=== PATIENT | female | born 1945 | race Hispanic/Latino ===

== ENCOUNTER 2018-04-16 12:06 | Observation (INO) | payer MEDICARE ==
[2018-04-14 09:35] VITALS: BP_SYST 147; BP_SYST 149; BP_DIAS 47; BP_DIAS 60
[2018-04-14 10:27] LABS: BASOPHILS % (AUTO) 0.6 % (0.0-5.0); EOSINOPHILS % (AUTO) 1.9 % (0.0-8.0); HEMATOCRIT 36.7 % (36-48); LYMPHOCYTES % (AUTO) 28.8 % (21.0-51.0); MEAN CORPUSCULAR HEMOGLOBIN 29.9 pg (27.0-33.0); MEAN CORPUSCULAR HGB CONC 32.9 g/dL (32.0-36.0); MEAN CORPUSCULAR VOLUME 91.1 fL (79-99); MONOCYTES % (AUTO) 10.8 % (3.0-13.0); NEUTROPHILS % (AUTO) 57.9 % (40.0-77.0); PLATELET COUNT (AUTO) 168 K/uL (130-400); RED BLOOD CELL COUNT(AUTO) 4.03 MIL/uL (4.00-5.50); RED CELL DISTRIBUTION WIDTH 13.5 % (11.0-15.5); WHITE BLOOD COUNT (AUTO) 6.1 K/uL (4.8-10.8)
[2018-04-14 10:34] LABS: APPEARANCE,URINE Cloudy (CLEAR); BILIRUBIN,URINE Negative (NEGATIVE); COLOR,URINE Yellow (YELLOW); GLUCOSE, URINE (UA) Negative (NEGATIVE); KETONES,URINE Negative (NEGATIVE); LEUKOCYTE ESTERASE ,URINE Moderate (NEGATIVE); NITRATE,URINE Positive (NEGATIVE); OCCULT BLOOD,URINE Trace (NEGATIVE); PROTEIN,URINE Negative (NEGATIVE); UROBILINOGEN,URINE 0.2 mg/dL (0.2-1.0)
[2018-04-14 10:38] LABS: BACTERIA,URINE Many /HPF (None Seen); RBC,URINE 0-1 /HPF (0-1); SQUAMOUS EPITHELIAL CELL,UR Few /HPF (0-2)
[2018-04-14 10:40] LABS: INR 0.99 (0.85-1.15); PARTIAL THROMBOPLASTIN TIME 27.5 SEC (26.3-35.5); PROTHROMBIN TIME 10.4 SEC (9.6-11.6)
[2018-04-14 10:42] LABS: CREATININE 1.4 mg/dL (0.5-1.5)
[2018-04-16] VITALS (9 sets, daily range): BP systolic 133–161; BP diastolic 54–98
[~2018-04-16] VITALS: Ht 167.6 cm; Wt 115.3 kg
[~2018-04-16 12:06] MED LIST: AEC81 PO; INSU100I24 SQ; METF500S7 PO; OMEP20TA25 PO; PIOG15TA66 PO; SIMV20TA6 PO
[2018-04-16] MEDS ORDERED: SODIUM CHLORIDE 0.9% 1000ML 1,000 ML IV ONE (14:40)
[2018-04-16] MEDS ORDERED: LIDOCAINE HCL-MPF 2% 5ML VIAL ONE (16:15)
[2018-04-16] MEDS ORDERED: HEPARIN SODIUM 1000UNIT/ML 10ML VIAL ONE (16:15)
[2018-04-16] MEDS ORDERED: IOHEXOL-350 50ML VIAL IV ONE (16:15)
[2018-04-16] MEDS ORDERED: IOHEXOL 350 MG/ML 100ML INFUS..BTL IV ONE (16:15)
[2018-04-16] MEDS ORDERED: NITROGLYCERIN 5 MG/ML 10 ML VIAL IV ONE (16:15)
[2018-04-16] MEDS ORDERED: SODIUM BICARB 50MEQ 50ML VIAL ONE (16:20)
[2018-04-16] MEDS ORDERED: MIDAZOLAM HCL 1 MG/ML 2ML VIAL ONE (16:29)
[2018-04-16] MEDS ORDERED: MEPERIDINE-PF 25 MG/ML SYG ONE (16:29)
[2018-04-16] MEDS ORDERED: CLOPIDOGREL BISULFATE 300 MG TAB ONE (17:05)
[2018-04-16] MEDS ORDERED: ASPIRIN 81MG TAB.CHEW ONE (17:12)
[2018-04-16] MEDS ORDERED: SODIUM CHLORIDE 0.9% 1000ML 1,000 ML IV SCH (17:21)
[2018-04-16] MEDS ORDERED: PANT40TA25 PO (17:29)
[2018-04-16] MEDS ORDERED: DEXTROSE 50%-WATER 50 ML DISP.SYRIN IV PRN (17:30)
[2018-04-16] MEDS ORDERED: GLUCAGON 1MG KIT 1 MG ML IM PRN (17:30)
[2018-04-16] MEDS ORDERED: ACETAMINOPHEN 325 MG TAB PO PRN (17:30)
[2018-04-16] MEDS ORDERED: ONDANSETRON HCL 4 MG/2 ML VIAL IVP PRN (17:30)
[2018-04-16] MEDS ORDERED: ACETAMINOPHEN-CODEINE 300/30MG TAB PO PRN (17:30)
[2018-04-16] MEDS ORDERED: HYDRALAZINE HCL 20 MG/ML VIAL IM PRN (17:45)
[2018-04-16] MEDS: METOPROLOL TARTRATE 25 MG TAB PO SCH (20:23)
[2018-04-16] MEDS: INSULIN HUMULIN R 100 UNIT/ML 3ML SQ SCH (21:00)
[2018-04-17 03:00] VITALS: BP 168/99
[2018-04-17 03:53] LABS: HEMATOCRIT 36.9 % (36-48); MEAN CORPUSCULAR HEMOGLOBIN 30.6 pg (27.0-33.0); MEAN CORPUSCULAR HGB CONC 33.9 g/dL (32.0-36.0); MEAN CORPUSCULAR VOLUME 90.3 fL (79-99); PLATELET COUNT (AUTO) 181 K/uL (130-400); RED BLOOD CELL COUNT(AUTO) 4.08 MIL/uL (4.00-5.50); RED CELL DISTRIBUTION WIDTH 13.7 % (11.0-15.5); WHITE BLOOD COUNT (AUTO) 8.5 K/uL (4.8-10.8)
[2018-04-17 04:26] LABS: CREATININE 1.2 mg/dL (0.5-1.5); POTASSIUM 3.9 mmol/L (3.5-5.1)
[2018-04-17] MEDS: INSULIN HUMULIN R 100 UNIT/ML 3ML SQ SCH (06:17)
[2018-04-17] MEDS ORDERED: CLOP75TA14 PO (07:30)
[2018-04-17] MEDS ORDERED: METO25TA3 PO (07:31)
[2018-04-17 07:43] VITALS: BP 133/80
[2018-04-17] MEDS ORDERED: PANTOPRAZOLE SODIUM 40 MG TABLET.DR PO SCH (09:00)
[2018-04-17] MEDS ORDERED: CLOPIDOGREL BISULFATE 75 MG TAB PO SCH (09:00)
[2018-04-17] MEDS ORDERED: SIMVASTATIN 20 MG TABLET PO SCH (09:00)
[2018-04-17] MEDS ORDERED: ASPIRIN 81 MG EC TAB PO SCH (09:00)
[2018-04-17] MEDS ORDERED: PIOGLITAZONE HCL 15 MG TAB PO SCH (09:00)
[2018-04-17] MEDS ORDERED: INSULIN DEGLUDEC 20 UNIT SQ SCH (09:00)
[2018-04-17] MEDS: METOPROLOL TARTRATE 25 MG TAB PO SCH (09:25)
[2018-04-17 11:42] VITALS: BP 145/50
== END 2018-04-17 11:27 | disposition home or self-care (01) ==
LOC: DAH 12:06 → DAHIP 12:07 → DAH 12:07 → 2AH 18:07
PROVIDERS: ADMIT Internal Medicine; ATTEND Internal Medicine
DX: I25.119 Atherosclerotic heart disease of native coronary artery with unspecified angina pectoris (principal); I25.5 Ischemic cardiomyopathy; E66.9 Obesity, unspecified; I11.0 Hypertensive heart disease with heart failure; I50.42 Chronic combined systolic (congestive) and diastolic (congestive) heart failure; E11.9 Type 2 diabetes mellitus without complications; E78.5 Hyperlipidemia, unspecified; I07.1 Rheumatic tricuspid insufficiency; I47.2 Ventricular tachycardia; I49.3 Ventricular premature depolarization; Z79.4 Long term (current) use of insulin; Z96.659 Presence of unspecified artificial knee joint; Z79.01 Long term (current) use of anticoagulants; Z82.49 Family history of ischemic heart disease and other diseases of the circulatory system
CPT/HCPCS: 36415 ×3; 71045; 80048 ×2; 80061; 81001; 82948 ×4; 83735; 85025; 85027; 85347; 85610; 85730; 93005 ×2; 93458; 96372; A4606; C1760 ×2; C1769; C1874; C1887; C1894; C9600; G0378 ×23; J0360; J1644 ×2; J1815; J2175; J2250; J3490 ×3; J7030; Q9965; Q9967 ×2; 99156; 99157

== ENCOUNTER → 2018-05-07 | Outpatient (CLI) | payer MEDICARE ==
[~2018-05-07] MED LIST changes: +CLOP75TA14 PO; +IOHEXOL-350 75 ML VIAL IV ONE; +METO25TA3 PO; -OMEP20TA25 PO; +PANT40TA25 PO
[2018-05-07 14:28] LABS: BASOPHILS % (AUTO) 0.9 % (0.0-5.0); EOSINOPHILS % (AUTO) 1.8 % (0.0-8.0); HEMATOCRIT 39.3 % (36-48); LYMPHOCYTES % (AUTO) 31.5 % (21.0-51.0); MEAN CORPUSCULAR HEMOGLOBIN 30.6 pg (27.0-33.0); MEAN CORPUSCULAR HGB CONC 33.7 g/dL (32.0-36.0); MEAN CORPUSCULAR VOLUME 90.6 fL (79-99); MONOCYTES % (AUTO) 10.9 % (3.0-13.0); NEUTROPHILS % (AUTO) 54.9 % (40.0-77.0); PLATELET COUNT (AUTO) 214 K/uL (130-400); RED BLOOD CELL COUNT(AUTO) 4.34 MIL/uL (4.00-5.50); RED CELL DISTRIBUTION WIDTH 13.5 % (11.0-15.5); WHITE BLOOD COUNT (AUTO) 6.2 K/uL (4.8-10.8)
[2018-05-07 14:36] LABS: CREATININE 1.5 mg/dL (0.5-1.5); POTASSIUM 4.3 mmol/L (3.5-5.1)
[2018-05-07 14:43] LABS: B-TYPE NATRIURETIC PEPTIDE 143 pg/mL (0-100); BILIRUBIN,TOTAL 0.7 mg/dL (0.2-1.0); MAGNESIUM 2.1 mg/dL (1.80-2.40); PHOSPHORUS 3.8 mg/dL (2.5-4.9); TOTAL PROTEIN, SERUM 7.6 g/dL (6.0-8.3); URIC ACID 6.3 mg/dL (2.6-7.2)
== END | disposition home or self-care (01) ==
LOC: RAH 13:41
PROVIDERS: ATTEND Internal Medicine Cardiovascular Disease
DX: J84.10 Pulmonary fibrosis, unspecified (principal); M47.895 Other spondylosis, thoracolumbar region; I26.09 Other pulmonary embolism with acute cor pulmonale; R94.39 Abnormal result of other cardiovascular function study; Z79.899 Other long term (current) drug therapy
CPT/HCPCS: 36415; 71275; 80053; 80061; 82550; 82977; 83615; 83735; 83880; 84100; 84550; 85025; Q9967

== ENCOUNTER 2018-06-12 06:00 | Observation (INO) | payer MEDICARE ==
[2018-06-10 13:45] VITALS: BP 113/45
[2018-06-10 13:51] LABS: CREATININE 2.2 mg/dL (0.5-1.5); POTASSIUM 4.2 mmol/L (3.5-5.1)
[2018-06-10 13:55] LABS: INR 0.94 (0.85-1.15); PARTIAL THROMBOPLASTIN TIME 26.7 SEC (26.3-35.5); PROTHROMBIN TIME 9.9 SEC (9.6-11.6)
[2018-06-10 13:58] LABS: BASOPHILS % (AUTO) 0.6 % (0.0-5.0); EOSINOPHILS % (AUTO) 1.1 % (0.0-8.0); HEMATOCRIT 35.9 % (36-48); LYMPHOCYTES % (AUTO) 28.2 % (21.0-51.0); MEAN CORPUSCULAR HEMOGLOBIN 29.9 pg (27.0-33.0); MEAN CORPUSCULAR HGB CONC 33.4 g/dL (32.0-36.0); MEAN CORPUSCULAR VOLUME 89.6 fL (79-99); MONOCYTES % (AUTO) 9.5 % (3.0-13.0); NEUTROPHILS % (AUTO) 60.6 % (40.0-77.0); PLATELET COUNT (AUTO) 225 K/uL (130-400); RED BLOOD CELL COUNT(AUTO) 4.01 MIL/uL (4.00-5.50); RED CELL DISTRIBUTION WIDTH 13.2 % (11.0-15.5); WHITE BLOOD COUNT (AUTO) 6.2 K/uL (4.8-10.8)
[~2018-06-12] VITALS: Ht 165.1 cm; Wt 111.3 kg
[2018-06-12] VITALS (10 sets, daily range): BP systolic 92–141; BP diastolic 46–81
[~2018-06-12 06:00] MED LIST changes: +FURO40TA5 PO; -IOHEXOL-350 75 ML VIAL IV ONE; +LOSA1TAB54 PO; +METF-526 PO; -METF500S7 PO; +MEXI150C2 PO; +POTA20TA12 PO; +SODIUM CHLORIDE 0.9% 100 ML IV SCH
[2018-06-12] MEDS ORDERED: MIDAZOLAM HCL 1 MG/ML 2ML VIAL ONE ×5 (07:38→11:31)
[2018-06-12] MEDS ORDERED: LIDOCAINE HCL 2% 20ML ONE (07:38)
[2018-06-12] MEDS ORDERED: HEPARIN SODIUM 1000UNIT/ML 10ML VIAL ONE (07:38)
[2018-06-12] MEDS ORDERED: MEPERIDINE-PF 25 MG/ML SYG ONE ×5 (07:38→11:32)
[2018-06-12] MEDS ORDERED: AMIODARONE HCL 50 MG/ML 3 ML VIAL ONE (12:13)
[2018-06-12] MEDS ORDERED: AMIODARONE HCL 900 MG in DEXTROSE 5%-WATER 500 ML IV SCH (12:15)
[2018-06-12] MEDS ORDERED: IOHEXOL-350 50ML VIAL IV ONE (12:28)
[2018-06-12] MEDS: METFORMIN HCL 500 MG TABLET PO SCH (17:00)
[2018-06-12] MEDS ORDERED: PNEUMOCOCCAL VACCINE POLYVALENT 0.5 ML/VIAL [PPV] IM ONE (20:00)
[2018-06-12] MEDS: METOPROLOL TARTRATE 25 MG TAB PO SCH (20:20)
[2018-06-12] MEDS: FUROSEMIDE 40 MG TABLET PO SCH (20:20)
[2018-06-12] MEDS: INSULIN HUMULIN R 100 UNIT/ML 3ML SQ SCH (20:36)
[2018-06-12] MEDS ORDERED: SIMVASTATIN 20 MG TABLET PO SCH (21:00)
[2018-06-13 03:45] VITALS: BP 109/54
[2018-06-13 03:51] VITALS: BP 125/72
[2018-06-13] MEDS ORDERED: PNEUMOCOCCAL VACCINE POLYVALENT 0.5 ML/VIAL [PPV] IM SCH (06:30)
[2018-06-13] MEDS: INSULIN HUMULIN R 100 UNIT/ML 3ML SQ SCH ×2 (06:45→11:49)
[2018-06-13] MEDS ORDERED: PANTOPRAZOLE SODIUM 40 MG TABLET.DR PO SCH (07:30)
[2018-06-13 07:43] VITALS: BP 118/62
[2018-06-13] MEDS ORDERED: LOSARTAN/HYDROCHLOROTHIAZIDE 50-12.5MG TABLET PO SCH (09:00)
[2018-06-13] MEDS ORDERED: POTASSIUM CHLORIDE 20 MEQ ERTAB PO SCH (09:00)
[2018-06-13] MEDS ORDERED: INSULIN DEGLUDEC 20 UNIT SQ SCH (09:00)
[2018-06-13] MEDS ORDERED: CLOPIDOGREL BISULFATE 75 MG TAB PO SCH (09:00)
[2018-06-13] MEDS ORDERED: PIOGLITAZONE HCL 15 MG TAB PO SCH (09:00)
[2018-06-13] MEDS ORDERED: ASPIRIN 81 MG EC TAB PO SCH (09:00)
[2018-06-13] MEDS: METFORMIN HCL 500 MG TABLET PO SCH (09:13)
[2018-06-13] MEDS: FUROSEMIDE 40 MG TABLET PO SCH (09:13)
[2018-06-13] MEDS: METOPROLOL TARTRATE 25 MG TAB PO SCH (09:14)
[2018-06-13 11:08] VITALS: BP 97/46
== END 2018-06-13 15:45 | disposition home or self-care (01) ==
LOC: DAH 06:00 → 2AH 06:01 → DAH 06:01
PROVIDERS: ADMIT Internal Medicine; ATTEND Internal Medicine
DX: I47.1 Supraventricular tachycardia (principal); E11.22 Type 2 diabetes mellitus with diabetic chronic kidney disease; E11.36 Type 2 diabetes mellitus with diabetic cataract; I12.9 Hypertensive chronic kidney disease with stage 1 through stage 4 chronic kidney disease, or unspecified chronic kidney disease; N18.9 Chronic kidney disease, unspecified; E66.01 Morbid (severe) obesity due to excess calories; G47.33 Obstructive sleep apnea (adult) (pediatric); I25.10 Atherosclerotic heart disease of native coronary artery without angina pectoris; Z95.5 Presence of coronary angioplasty implant and graft; Z96.651 Presence of right artificial knee joint; Z90.49 Acquired absence of other specified parts of digestive tract; Z23 Encounter for immunization
CPT/HCPCS: 36415; 80048; 82948 ×5; 85025; 85610; 85730; 93005; 93621; 93654; 96372 ×2; A4606; A4649; C1730 ×2; C1732; C1760; C1893; C1894 ×4; G0009; G0378 ×34; J0282 ×2; J1644 ×2; J1815 ×2; J2175 ×5; J2250 ×5; J3490; J7060; Q9967; 99156; 99157

== ENCOUNTER 2019-03-06 05:50 | Observation (INO) | payer MEDICARE | END 2019-03-07 13:01 | disposition home or self-care (01) | LOC: DAH 05:50 → DAHIP 05:51 → 2DH 14:04 ==

== ENCOUNTER 2020-10-06 07:15 | Day surgery (SDC) | payer MEDICARE ==
[2020-10-04 13:05] LABS: BASOPHILS % (AUTO) 0.6 % (0.0-5.0); EOSINOPHILS % (AUTO) 1.3 % (0.0-8.0); LYMPHOCYTES % (AUTO) 29.2 % (21.0-51.0); MEAN CORPUSCULAR HEMOGLOBIN 29.9 pg (27.0-33.0); MEAN CORPUSCULAR HGB CONC 33.4 g/dL (32.0-36.0); MEAN CORPUSCULAR VOLUME 89.5 fL (79-99); MONOCYTES % (AUTO) 8.9 % (3.0-13.0); NEUTROPHILS % (AUTO) 59.8 % (40.0-77.0); PLATELET COUNT (AUTO) 224 K/uL (130-400); RED BLOOD CELL COUNT(AUTO) 3.91 MIL/uL (4.00-5.50); RED CELL DISTRIBUTION WIDTH 13.3 % (11.0-15.5); WHITE BLOOD COUNT (AUTO) 5.4 K/uL (4.8-10.8)
[2020-10-04 13:18] LABS: INR 1.02 (0.85-1.15); PROTHROMBIN TIME 11.1 SEC (9.6-11.6)
[2020-10-04 13:19] LABS: CREATININE 1.7 mg/dL (0.5-1.5); PARTIAL THROMBOPLASTIN TIME 27.6 SEC (26.3-35.5); POTASSIUM 4.7 mmol/L (3.5-5.1)
[2020-10-04 13:19] LABS: APPEARANCE,URINE Cloudy (CLEAR); BILIRUBIN,URINE Negative (NEGATIVE); COLOR,URINE Yellow (YELLOW); GLUCOSE, URINE (UA) Negative (NEGATIVE); KETONES,URINE Negative (NEGATIVE); LEUKOCYTE ESTERASE ,URINE Small (NEGATIVE); NITRATE,URINE Negative (NEGATIVE); OCCULT BLOOD,URINE Negative (NEGATIVE); PROTEIN,URINE Negative (NEGATIVE); UROBILINOGEN,URINE 0.2 mg/dL (0.2-1.0)
[2020-10-04 13:31] LABS: BACTERIA,URINE Many /HPF (None Seen); RBC,URINE 0-1 /HPF (0-1); SQUAMOUS EPITHELIAL CELL,UR Few /HPF (0-2); WBC,URINE 0-1 /HPF (0-1)
[2020-10-06] VITALS (10 sets, daily range): BP systolic 134–153; BP diastolic 50–69
[~2020-10-06] VITALS: Ht 165.1 cm; Wt 103.2 kg
[~2020-10-06 07:15] MED LIST changes: +ATOR40TA69 PO; +CHOL500050 PO; -CLOP75TA14 PO; +DULA1.5P SQ; +FERR325T22 PO; -FURO40TA5 PO; -INSU100I24 SQ; +LOSA100T58 PO; -LOSA1TAB54 PO; -METF-526 PO; -METO25TA3 PO; -MEXI150C2 PO; -PANT40TA25 PO; +PANT40TA55 PO; -PIOG15TA66 PO; -POTA20TA12 PO; +SERT-439 PO; -SIMV20TA6 PO; -SODIUM CHLORIDE 0.9% 100 ML IV SCH; +SODIUM CHLORIDE 0.9% 1000ML 1,000 ML IV SCH
[2020-10-06] MEDS ORDERED: SODIUM BICARB 50MEQ 50ML VIAL 50 ML ONE (11:45)
[2020-10-06] MEDS ORDERED: NITROGLYCERIN 2 MG/VIAL VIAL IV ONE (11:45)
[2020-10-06] MEDS ORDERED: HEPARIN SODIUM 1000UNIT/ML 10ML VIAL ONE (11:45)
[2020-10-06] MEDS ORDERED: MEPERIDINE-PF 25 MG/ML SYG ONE ×2 (11:46→12:25)
[2020-10-06] MEDS ORDERED: IOHEXOL-350 75 ML VIAL IV ONE (11:46)
[2020-10-06] MEDS ORDERED: LIDOCAINE HCL 2% 20ML ONE (11:46)
[2020-10-06] MEDS ORDERED: MIDAZOLAM HCL 1 MG/ML 2ML VIAL ONE ×2 (11:46→12:25)
[2020-10-06] MEDS ORDERED: SODIUM CHLORIDE 0.9% 1000ML 1,000 ML IV SCH (13:30)
[2020-10-06] MEDS ORDERED: ACETAMINOPHEN-CODEINE 300/30MG TAB PO PRN ×2 (13:30)
[2020-10-06] MEDS ORDERED: ONDANSETRON HCL 4 MG/2 ML VIAL IVP PRN (13:30)
[2020-10-06] MEDS ORDERED: CLOPIDOGREL BISULFATE 300 MG TAB ONE (13:40)
[2020-10-06] MEDS ORDERED: ASPIRIN 325MG EC TAB 325 MG TABLET.DR PO ONE (13:41)
[2020-10-06] MEDS ORDERED: IOPAMIDOL-370 100 ML VIAL IV ONE (13:51)
== END 2020-10-06 19:17 | disposition home or self-care (01) ==
LOC: DAH 07:15
PROVIDERS: ATTEND Internal Medicine Cardiovascular Disease
DX: I25.119 Atherosclerotic heart disease of native coronary artery with unspecified angina pectoris (principal); E11.22 Type 2 diabetes mellitus with diabetic chronic kidney disease; I13.0 Hypertensive heart and chronic kidney disease with heart failure and stage 1 through stage 4 chronic kidney disease, or unspecified chronic kidney disease; N18.9 Chronic kidney disease, unspecified; I50.32 Chronic diastolic (congestive) heart failure; E78.5 Hyperlipidemia, unspecified; Z79.82 Long term (current) use of aspirin; Z79.01 Long term (current) use of anticoagulants; Z79.899 Other long term (current) drug therapy; Z95.5 Presence of coronary angioplasty implant and graft; Z82.49 Family history of ischemic heart disease and other diseases of the circulatory system; Z98.890 Other specified postprocedural states
CPT/HCPCS: 36415; 71045; 80048; 81001; 82948 ×2; 85025; 85610; 85730; 87088; 93005; 93458; A4215; A4216; A4221; A4222; A4223 ×3; A4606; A4663; C1725 ×2; C1760; C1769; C1874 ×3; C1887 ×2; C1894; C9600 ×3; J1644 ×2; J2175 ×2; J2250 ×2; J3490 ×3; J7030; Q9967 ×2; 96360; 96361; 99156; 99157

== ENCOUNTER 2021-03-14 19:49 | Emergency (ER) | payer MEDICARE ==
[2021-03-14] VITALS (7 sets, daily range): BP systolic 121–185; BP diastolic 67–96
[~2021-03-14] VITALS: Ht 162.6 cm; Wt 105.2 kg
[~2021-03-14 19:49] MED LIST changes: -SODIUM CHLORIDE 0.9% 1000ML 1,000 ML IV SCH
[2021-03-14] MEDS ORDERED: FENTANYL CITRATE PF 50 MCG/1 ML 2ML VIAL IVP ONE (21:30)
[2021-03-14 21:38] LABS: BASOPHILS % (AUTO) 0.5 % (0.0-5.0); EOSINOPHILS % (AUTO) 0.3 % (0.0-8.0); HEMATOCRIT 35.4 % (36-48); MEAN CORPUSCULAR HEMOGLOBIN 29.5 pg (27.0-33.0); MEAN CORPUSCULAR HGB CONC 33.1 g/dL (32.0-36.0); MEAN CORPUSCULAR VOLUME 89.4 fL (79-99); MONOCYTES % (AUTO) 8.2 % (3.0-13.0); NEUTROPHILS % (AUTO) 77.4 % (40.0-77.0); PLATELET COUNT (AUTO) 190 K/uL (130-400); RED BLOOD CELL COUNT(AUTO) 3.96 MIL/uL (4.00-5.50); RED CELL DISTRIBUTION WIDTH 13.2 % (11.0-15.5); WHITE BLOOD COUNT (AUTO) 10.1 K/uL (4.8-10.8)
[2021-03-14] MEDS ORDERED: IOHEXOL 350 MG/ML 100ML INFUS..BTL IV ONE (21:46)
[2021-03-14 21:49] LABS: CREATININE 1.7 mg/dL (0.5-1.5); POTASSIUM 4.3 mmol/L (3.5-5.1)
[2021-03-14 21:52] LABS: PROTHROMBIN TIME 10.9 SEC (9.6-11.6)
[2021-03-14 21:53] LABS: BILIRUBIN,TOTAL 0.5 mg/dL (0.2-1.0); TOTAL PROTEIN, SERUM 7.2 g/dL (6.0-8.3)
[2021-03-14] MEDS ORDERED: HYDROCODONE/ACETAMINOPHEN 10/325 MG TAB PO ONE (23:30)
[2021-03-14] MEDS ORDERED: MORPHINE 2 MG SYG IVP ONE (23:30)
[2021-03-14] MEDS ORDERED: ONDANSETRON 4MG INJ IVP ONE (23:30)
[2021-03-15 00:10] VITALS: BP 167/74
[2021-03-15] MEDS ORDERED: ORPH-43 PO (00:29)
[2021-03-15] MEDS ORDERED: MELO7.5T12 PO (00:29)
[2021-03-15] MEDS ORDERED: ACET1TAB25 PO (00:29)
[2021-03-15] MEDS ORDERED: INSULIN HUMULIN R 100 UNIT/ML 3ML IV ONE (00:30)
[2021-03-15] MEDS ORDERED: INSULIN HUMULIN R 100 UNIT/ML 3ML ONE (00:31)
[2021-03-15 01:10] VITALS: BP 155/107
[2021-03-15 01:51] VITALS: BP 148/89
== END 2021-03-15 01:21 | disposition home or self-care (01) ==
LOC: EDH 19:49
DX: S42.202A Unspecified fracture of upper end of left humerus, initial encounter for closed fracture (principal); S80.01XA Contusion of right knee, initial encounter; S80.212A Abrasion, left knee, initial encounter; S09.90XA Unspecified injury of head, initial encounter; E11.9 Type 2 diabetes mellitus without complications; I10 Essential (primary) hypertension; Z79.02 Long term (current) use of antithrombotics/antiplatelets; Z79.1 Long term (current) use of non-steroidal anti-inflammatories (NSAID); Z79.82 Long term (current) use of aspirin; Z79.899 Other long term (current) drug therapy; Z88.1 Allergy status to other antibiotic agents; Z96.652 Presence of left artificial knee joint; W18.39XA Other fall on same level, initial encounter; Y93.89 Activity, other specified; Y92.89 Other specified places as the place of occurrence of the external cause; Y99.8 Other external cause status
CPT/HCPCS: 36415; 70450; 71260; 72125; 73060; 74177; 80053; 83690; 84484; 85025; 85610; 93005; 96374; 96375; 99285; J1815; J2405; J3010; Q9967